=== PATIENT | male | born 2000 | race Caucasian/White ===

== ENCOUNTER 2021-01-19 00:49 | Emergency (ER) | payer BC ==
[~2021-01-19] VITALS: Ht 190.5 cm; Wt 90.9 kg
[2021-01-19 01:20] VITALS: TEMP 98
[2021-01-19] MEDS ORDERED: PERIDEX (CHLOR480 ML MM (02:11)
[2021-01-19] MEDS ORDERED: LIDO2%JEL30 TP (02:11)
[2021-01-19 02:23] VITALS: BP 144/72; PULSE 62
== END 2021-01-19 02:23 | disposition home or self-care (01) ==
LOC: COL.ER 00:49
DX: S01.512A Laceration without foreign body of oral cavity, initial encounter (principal); W01.0XXA Fall on same level from slipping, tripping and stumbling without subsequent striking against object, initial encounter; Y92.009 Unspecified place in unspecified non-institutional (private) residence as the place of occurrence of the external cause